=== PATIENT | female | born 1955 | race Caucasian/White ===

== ENCOUNTER → 2017-04-17 | Outpatient (CLI) | payer BC, OTHER ==
--- NOTE | 2017-04-17 09:41 | DIAGNOSTIC IMAGING REPORT ---
RIGHT HIP 2 VIEWS HISTORY: RIGHT KNEE AND HIP PAIN Right COMPARISON: None. FINDINGS: There is no fracture or dislocation. Soft tissues are unremarkable. No radiopaque foreign bodies. Minimal cartilage space narrowing and an overhanging osteophyte at the right acetabulum. This is consistent with degenerative change. IMPRESSION: No fractures. Minimal right hip osteoarthritis. Electronically signed by: Gt Perdomo M.D. 04/17/2017 9:39 AM Dictated Date/Time: 04/17/2017 9:38 AM
--- NOTE | 2017-04-17 09:43 | DIAGNOSTIC IMAGING REPORT ---
RIGHT KNEE 4 OR MORE CLINICAL HISTORY: RIGHT KNEE AND HIP PAIN Right COMPARISON STUDY: None. FINDINGS: Standing views of the knees demonstrate mild cartilage space narrowing within the medial prominent of the right knee. The left knee is intact. Hypertrophy bilateral tibial spines consistent with degenerative change. No fracture or dislocation within the right knee. No significant knee effusion. Soft tissues are unremarkable. There is also mild cartilage space narrowing within the lateral patellofemoral compartment of the right knee. Small marginal osteophytes at the patella and medial compartment of the knee. IMPRESSION: Mild osteoarthritis within the right knee. No fractures. Electronically signed by: Gt Perdomo M.D. 04/17/2017 9:41 AM Dictated Date/Time: 04/17/2017 9:40 AM
== END | disposition home or self-care (01) ==
LOC: C.RDSM 11:40
PROVIDERS: ATTEND Physician Assistant
DX: M25.551 Pain in right hip (principal); M25.561 Pain in right knee

== ENCOUNTER → 2017-08-07 | Outpatient (CLI) | payer BC, OTHER ==
--- NOTE | 2017-08-08 14:35 | MAMMOGRAPHY REPORT ---
BILATERAL DIGITAL SCREENING MAMMOGRAM TOMOSYNTHESIS WITH CAD: 08/07/2017 CLINICAL HISTORY: Routine screening. Patient has no complaints. TECHNIQUE: Breast tomosynthesis in addition to standard 2D mammography was performed. Current study was also evaluated with a Computer Aided Detection (CAD) system. COMPARISON: Comparison is made to exams dated: 08/06/2016 mammogram, 08/03/2015 mammogram, 4 ultrasound, 08/16/2014 mammogram, 08/02/2014 mammogram, and 07/30/2013 mammogram - [facility]. BREAST COMPOSITION: There are scattered areas of fibroglandular density in both breasts. FINDINGS: No suspicious masses, calcifications, or areas of architectural distortion are noted in ei ther breast. There has been no significant interval change compared to prior exams. Scattered bilater al benign-appearing calcifications are not significantly changed. IMPRESSION: ACR BI-RADS CATEGORY 2: BENIGN There is no mammographic evidence of malignancy. A 1 year screening mammogram is recommended. The pa tient will receive written notification of the results. Approximately 10% of breast cancers are not detected with mammography. A negative mammographic report should not delay biopsy if a clinically suggestive mass is present. Ainsley Pak M.D. /:08/07/2017 16:23:04 Maintenance Machine Repairer: Jovanna Anguiano, M, [facility] letter sent: Normal 1/2 BI-RADS Code: ACR BI-RADS Category 2: Benign
== END | disposition home or self-care (01) ==
LOC: C.MAMM 14:36
PROVIDERS: ATTEND Family Medicine
DX: Z12.31 Encounter for screening mammogram for malignant neoplasm of breast (principal)

== ENCOUNTER 2024-11-26 12:27 | Inpatient (IN) ==
[2024-11-26 13:18] LABS: Appearance Urine Clear (Clear); Bacteria Urine Automated None Seen (None Seen); Bilirubin Urine 1+ (Negative); Blood Urine Negative (Negative); Color Urine Dark Yellow; Glucose Urine UA Negative (Negative); Ketones Urine 1+ (Negative); Leukocyte Esterase Urine 2+ (Negative); Mucus Urine Present (None Prsent); Nitrite Urine Negative (Negative); Protein Urine Trace (Negative); RBC Urine Automated 0-2 /hpf (0-2); Specific Gravity Urine 1.025 (1.000-1.030); Urobilinogen Urine Negative (Negative)
[2024-11-26 13:19] LABS: Basophils # (auto) 0.07 K/uL (0.00-0.20); Basophils % (auto) 1.4 %; Eosinophils # (auto) 0.19 K/uL (0.00-0.50); Eosinophils % (auto) 3.8 %; Hematocrit (blood only) 41.4 % (37.0-47.0); Immature Granulocytes # (auto) 0.04 K/uL (0.01-0.20); Immature Granulocytes % (auto) 0.8 %; Lymphocytes # (auto) 1.35 K/uL (1.20-3.40); Lymphocytes % (auto) 26.9 %; Mean Corpuscular Hemoglobin 29.7 pg (25.0-34.0); Mean Corpuscular Hgb Conc 33.8 g/dL (32.0-36.0); Mean Corpuscular Volume 87.7 fL (80.0-100.0); Mean Platelet Volume 9.5 fL (9.4-12.4); Monocytes # (auto) 0.38 K/uL (0.11-0.59); Monocytes % (auto) 7.6 %; Neutrophils # (auto) 2.98 K/uL (1.40-6.50); Neutrophils % (auto) 59.5 %; Platelet Count 335 K/uL (130-400); RDW Coefficient of Variation 13.3 % (11.5-14.5); RDW Standard Deviation 42.9 fL (36.4-46.3); Red Blood Count 4.72 M/uL (4.20-5.40); White Blood Count 5.01 K/ul (4.8-10.8)
[2024-11-26 13:32] LABS: Albumin Globulin Ratio 1.3 (0.9-2); Albumin Level 4.3 gm/dl (3.4-5.0); BUN Creatinine Ratio 18.8 (10-20); Bilirubin,Total 0.4 mg/dl (0.2-1.0); Calcium 9.7 mg/dl (8.6-10.3); Creatinine Clr Calc Pharmacy 76.7 ml/min; Globulin 3.4 gm/dl (2.5-4.0); Potassium 3.9 mmol/L (3.5-5.1); Total Protein 7.7 gm/dl (6.0-8.3)
--- NOTE | 2024-11-26 15:41 | History & Physical Report ---
Date of Service November 26, 2024 Assessment & Plan (1) Diverticulitis: Plan 68-year-old female who presents to the ER on referral from PCP due to nausea and intolerance of p.o. antibiotics for diverticulitis. No signs of worsening diverticulitis on admission. She has multiple medication allergies. Acute diverticulitis CTA/P/03/12: Sigmoid diverticulitis, no free air or abscess. Mild retained colonic stool. Cholelithiasis No leukocytosis on ER evaluation Patient with nausea although no vomiting and difficulty tolerating ciprofloxacin/Flagyl. Abdominal exam is with focal left lower quadrant tenderness but no rebound or guarding and patient reports her pain has not wors ened. Suspect more likely gastritis medicamentosa than worsening diverticulitis. Patient feels she has not tolerated ciprofloxacin well Patient is penicillin allergic however she reports she did tolerate Ancef well with orthopedics last year. On my review did receive Ancef 11/2023 and patient reports she tolerated this well. Will trial Rocephin/Flagyl on admission and monitor closely for signs of allergy If abdominal pain worsening or she is not progressing will repeat CTA/P Total bilirubin, ALT, alk phos normal. Minimal elevation of AST at 44. Trended x 1. Slight volume contraction on admission with poor p.o. intake Increase stool burden Noted on prior CT. Patient with poor p.o. intake and some nausea. MiraLAX added. Gastritis 2/2 abx Pepcid, famotidine, GI cocktail ordered - No diarrhea, no hematochezia DVT prophylaxis: Lovenox Disposition: MSO CODE STATUS: Full code Diet: Full liquids. History of Present Illness Primary Care Provider: Elier Moore MD Karely is a 68-year-old female with a history of Bactrim and penicillin allergy who was treated as an outpatient for diverticulitis who presents for diverticulitis with intolerance to oral antibiotics. On arrival no leukocytosis, UA is contaminated appearing. Prior CTA/P from 11/23/24 reviewed. This shows to sigmoid diverticulitis without evidence of free air or abscess. Mild retained stool. Cholelithiasis without acute cholecystitis. She was recommended for admission for diverticulitis with intolerance to p.o. antibiotics. Was prescribed Cipro/Flagyl as an outpatient Last [facility] office note reviewed Medical history of cervical disc disorder, diverticulitis, seizures, tobacco use, lumbar radiculopathy, osteoarthritis of the knee Outpatient medications: Calcium carbonate, vitamin D3, hydroxyzine 10 mg nightly. Recently prescribed Flagyl/Cipro for diverticulitis. History of hives to penicillin, fine drug rash with burning to Bactrim/sulfa. Seen at bedside - Reports she doesn't think pain is worse, but also hasn't gotten any better - No diarrhea. Last BM was yesterday, small, firm. First BM in 10 days. Not eating very much - No fevers or chills. No sweats. - +indigestion, nauseus since being on oral meds. No vomiting. - TOlerated ancef in the past with ortho, no reaction. Last allergic rxn as to bactrim 8 years ago. - Denies hx of GERD/reflux prior to this week. - No dysuria, no urinary urgency, no polyuria ? History of C. difficile per record review. Discussed the patient. She denies any history of C. difficile. Note she had an exposure as her mother had C. difficile but she has never had this before. Prophylactic antibiotics are not indicated. Clinically no diarrhea on admission. Medical History: Reviewed Medications: Reviewed Surgical History: Reviewed Family history: Reviewed Allergies: Reviewed Social History: No tobacco use. No etoh use. Code Status: Surrogate DM would be Santiago. Full Code MedHx: OA, cataracts Calcium, vitamin D3, Allergies Allergy/AdvReac Type Severity Reaction Status Date / Time sulfamethoxazole Allergy Severe hives - Verified 11/23/24 17:08 [From Bactrim] neck/face trimethoprim [From Bactrim] Allergy Severe hives - Verified 11/23/24 17:08 neck/face Penicillins Allergy Intermediate as a young Verified 11/23/24 17:08 child - hives oats AdvReac Intermediate Gastrointestinal Verified 11/23/24 17:08 Upset Home Medications Medication Instructions Recorded Confirmed Type hydroxyzine HCl 10 mg tablet 10 mg PO HS PRN NEEDED 11/07/23 11/26/24 History calcium 600 mg (as 1 tab PO QPM 03/20/24 11/26/24 History carbonate)-vitamin D3 5 mcg (200 unit) tablet Bacillus coagulans 2 billion 1 cap PO QAM 09/22/24 11/26/24 History cell-calcium 140 mg capsule (Digestive Advantage Probiotic) Combo Eye Drops 1 drp ophthalmic (eye) DIRECTED 11/23/24 11/26/24 History ciprofloxacin HCl 500 mg tablet 500 mg PO BID 5 days #10 tabs 11/23/24 11/26/24 Rx metronidazole 500 mg tablet 500 mg PO Q8H 5 days #15 tabs 11/23/24 11/26/24 Rx Past Med/Surg History Problem List Constipation (Acute) Diverticulitis (Acute) Encounter for pre-operative examination Medical History Insomnia Hx of motion sickness "mild" 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 at [facility] Has had no follow ups since procedure and no known problems. Surgical History History of cataract surgery left History of anesthesia reaction pt. was delusional when waking up after having knee surgery Nausea and vomiting after administration of anesthetic agent Awareness under anesthesia during colonoscopy History of arthroscopy of right knee History of colonoscopy S/P GRACE-BSO Family History Other No family history of adverse response to anesthesia Social History Smoking Status: Former smoker Tobacco Type: Cigarettes Second Hand Exposure: No; Do You Dip or Chew Tobacco: No; Hx Alcohol Use: No Hx Substance Use: No Preferred Language: [place] Communication Ability: Effective Visitor Services Information Assistant Required: No Beliefs That Will Affect Care: None Current Living Situation: Spouse Feels Safe at Home: Yes Assistive Devices: Glasses Physical Exam Physical Exam: General: A&Ox3. NAD. Cooperative. Skin: warm, dry. No signs of rash/urticaria HEENT: Atraumatic, normocephalic. Vision and hearing grossly intact Pulm: CTAB A&P. -wheezes, -rales, -rhonchi. Symmetrical chest rise. No increased work of breathing. No respiratory distress. Cardiac: RRR, -mrg. Radial pulses intact and symmetrical. Abdominal: Left lower quadrant tender to palpation. No right lower quadrant tenderness. No rebound or involuntary guarding. Some nausea on epigastric palpation Results & Data Results & Data Vital Signs (Past 12 Hours) Vital Signs Temp Pulse Pulse Resp BP BP Pulse Ox 11/26/24 15:00 60 22 124/79 94 11/26/24 14:30 54 L 18 136/77 93 11/26/24 14:28 57 L 11/26/24 14:00 58 L 14 121/80 96 11/26/24 13:36 57 L 20 138/79 97 11/26/24 12:39 36.3 C L 71 18 121/75 94 O2 Del Method 11/26/24 15:00 Room Air 11/26/24 14:30 Room Air 11/26/24 14:28 11/26/24 14:00 Room Air 11/26/24 13:36 Room Air 11/26/24 12:39 Room Air PG Care Time/CCT Total # of Minutes Spent Total Time Spent with Patient: Total time spent is greater than 50% in coordination of care (as documented) at patient's floor/unit and/or counseling patient: Coding Level of Care Code 64839 INT INP/OBS CARE Diagnoses Diverticulitis K57.92
[2024-11-26] MEDS ORDERED: ALUMINUM/MAGNESIUM SUSP 30 ML UDC PO PRN (16:06)
[2024-11-26] MEDS ORDERED: diphenhydrAMINE 50 MG/ML VIAL IV PRN (16:06)
[2024-11-26] MEDS: ALUMINUM/MAGNESIUM SUSP 30 ML UDC PO STA (16:42)
[2024-11-26] MEDS: FAMOTIDINE 20MG IV PUSH 20 MG/5 ML SYR IV STA (16:42)
[2024-11-26] MEDS: cefTRIAXone SODIUM 2,000 MG/50 ML BAG IV STA (16:43)
[2024-11-26] MEDS: POLYETHYLENE (MIRALAX) 17 GM PACK PO STA (16:43)
[2024-11-26] MEDS: metroNIDAZOLE 500 MG/100 ML BAG IV STA (16:43)
--- NOTE | 2024-11-26 16:59 | Emergency Department Note ---
Impression & Plan Diverticulitis ED Provider Note NAME: EMILY MASTERSON AGE: 68 SEX: F : 1955 ARRIVES VIA: Walk-In INFORMANT: Patient, ED PROVIDER(S): Jeremiah Aragon MD CHIEF COMPLAINT: Diverticulitis HPI: this is a 68-year-old female presenting for diverticulitis. Patient was here Saturday diagnosis diverticulitis patient was discharged on ciprofloxacin and metronidazole. Patient had some adverse reactions including nausea, weakness and possible throat swelling. She went to her primary care doctor today who sent her to the emergency department for IV antibiotics. ROS: See above HPI for pertinent positives & negatives. A total of 10 systems reviewed and were otherwise negative. PAST MEDICAL HISTORY: See Below PAST SURGICAL HISTORY: See Below FAMILY HISTORY: See Below SOCIAL HISTORY: See Below HOME MEDICATIONS: See Below ALLERGIES: See Below VITALS: See Below PHYSICAL EXAMINATION: General: resting comfortably in no acute distress Head: Normocephalic and atraumatic Eyes: Normal inspection, extraocular muscles intact Ear, nose, throat: Normal external exam Neck: Normal range of motion Respiratory: lungs clear to auscultation bilaterally Cardiovascular: Regular rate/rhythm, no murmur GI: soft, nontender, no guarding or rebound Extremities: nontender, moves all extremities Neuro: The patient awake and alert, appropriately conversive, no focal deficits, symmetric faces Skin: Warm, dry, and intact MEDICAL DECISION MAKING: This is a 68-year-old female presented for diverticulitis. Patient sent in by primary care doctor for adverse reaction of antibiotics. She request IV antibiotics. This time patient appears clinically well, no signs of anaphylaxis, allergic reaction. Patient notes continued abdominal pain left side where her diverticulitis was. She otherwise has not any fevers or chills. -Bloodwork is reviewed showing no significant leukocytosis, anemia, electrolyte or creatinine abnormality -Urinalysis reveals signs of contamination versus UTI. -After discussion with pharmacist, patient given IV ceftriaxone and metronidazole -Patient mated under Dr. Toledo Differential diagnosis: Sepsis, diverticulitis, allergic reaction Independent History obtained from: Diagnostics interpreted by me: ECG: None Cardiac Monitoring: An order was placed for continuous cardiac monitoring. The monitor shows a rate of 57 with sinus rhythm. 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 at [facility] Has had no follow ups since procedure and no known problems. Surgical History History of cataract surgery left History of anesthesia reaction pt. was delusional when waking up after having knee surgery Nausea and vomiting after administration of anesthetic agent Awareness under anesthesia during colonoscopy History of arthroscopy of right knee History of colonoscopy S/P GRACE-BSO Family History Other No family history of adverse response to anesthesia Social History Smoking Status: Former smoker Tobacco Type: Cigarettes Second Hand Exposure: No; Do You Dip or Chew Tobacco: No; Hx Alcohol Use: No Hx Substance Use: No Preferred Language: Bulgarian Communication Ability: Effective Vocational Nurse Required: No Beliefs That Will Affect Care: None Current Living Situation: Spouse Feels Safe at Home: Yes Assistive Devices: Glasses Allergies Allergies Allergy/AdvReac Type Severity Reaction Status Date / Time sulfamethoxazole Allergy Severe hives - Verified 11/23/24 17:08 [From Bactrim] neck/face trimethoprim [From Bactrim] Allergy Severe hives - Verified 11/23/24 17:08 neck/face Penicillins Allergy Intermediate as a young Verified 11/23/24 17:08 child - hives oats AdvReac Intermediate Gastrointestinal Verified 11/23/24 17:08 Upset Home Meds Home Medications Medication Instructions Recorded Confirmed hydroxyzine HCl 10 mg tablet 10 mg PO HS PRN NEEDED 11/07/23 11/26/24 calcium 600 mg (as 1 tab PO QPM 03/20/24 11/26/24 carbonate)-vitamin D3 5 mcg (200 unit) tablet Bacillus coagulans 2 billion 1 cap PO QAM 09/22/24 11/26/24 cell-calcium 140 mg capsule (Digestive Advantage Probiotic) Combo Eye Drops 1 drp ophthalmic (eye) DIRECTED 11/23/24 11/26/24 Previous Rx's Medication Instructions Recorded ciprofloxacin HCl 500 mg tablet 500 mg PO BID 5 days #10 tabs 11/23/24 metronidazole 500 mg tablet 500 mg PO Q8H 5 days #15 tabs 11/23/24 Results & Data (ED) Vital Signs Vital Signs - 24 hr 11/26/24 12:39 11/26/24 13:36 11/26/24 14:00 Temperature 36.3 C L Temperature Source Temporal Artery Scan Pulse Rate 71 58 L Pulse Rate [Apical] 57 L Pulse Rate from SpO2 Sensor 59 L Pulse Rhythm [Apical] Regular Pulse Strength [Apical] Normal Respiratory Rate 18 20 14 Respiratory Effort / Characteristics Non-Labored Spontaneous Non-Labored Spontaneous Respiratory Depth Normal Normal Respiratory Pattern Regular Regular Blood Pressure 121/75 121/80 Blood Pressure [Left Arm] 138/79 Blood Pressure Mean 90 93 Blood Pressure Mean [Left Arm] 98 Blood Pressure Position [Left Arm] Semi-fowlers Pulse Oximetry 94 97 96 Oxygen Delivery Method Room Air Room Air Room Air Sepsis Recent Fever Within 48 Hours No Sepsis New/Unexplained Change in Mental Status N/A Sepsis Action Taken by Nursing No Action Required 11/26/24 14:28 11/26/24 14:30 11/26/24 15:00 Temperature Temperature Source Pulse Rate 57 L 54 L 60 Pulse Rate [Apical] Pulse Rate from SpO2 Sensor 54 L Pulse Rhythm [Apical] Pulse Strength [Apical] Respiratory Rate 18 22 Respiratory Effort / Characteristics Respiratory Depth Respiratory Pattern Blood Pressure 136/77 124/79 Blood Pressure [Left Arm] Blood Pressure Mean 96 94 Blood Pressure Mean [Left Arm] Blood Pressure Position [Left Arm] Pulse Oximetry 93 94 Oxygen Delivery Method Room Air Room Air Sepsis Recent Fever Within 48 Hours Sepsis New/Unexplained Change in Mental Status Sepsis Action Taken by Nursing Laboratory Data 11/26/24 12:45 11/26/24 12:45 Lab Results 11/26/24 11/26/24 Range/Units 12:40 12:45 WBC 5.01 (4.8-10.8) K/ul RBC 4.72 (4.20-5.40) M/uL Hgb 14.0 (12.0-16.0) g/dl Hct 41.4 (37.0-47.0) % MCV 87.7 (80.0-100.0) fL MCH 29.7 (25.0-34.0) pg MCHC 33.8 (32.0-36.0) g/dL RDW Std Deviation 42.9 (36.4-46.3) fL RDW Coeff of Jodi 13.3 (11.5-14.5) % Plt Count 335 (130-400) K/uL MPV 9.5 (9.4-12.4) fL Immature Gran % (Auto) 0.8 % Neut % (Auto) 59.5 % Lymph % (Auto) 26.9 % [place] % (Auto) 7.6 % Eos % (Auto) 3.8 % Baso % (Auto) 1.4 % Neut # (Auto) 2.98 (1.40-6.50) K/uL Lymph # (Auto) 1.35 (1.20-3.40) K/uL [place] # (Auto) 0.38 (0.11-0.59) K/uL Eos # (Auto) 0.19 (0.00-0.50) K/uL Baso # (Auto) 0.07 (0.00-0.20) K/uL Immature Gran # (Auto) 0.04 (0.01-0.20) K/uL Sodium 139 (136-145) mmol/L Potassium 3.9 (3.5-5.1) mmol/L Chloride 103 (98-107) mmol/L Carbon Dioxide 29 (21-32) mmol/L Anion Gap 7 (3-11) BUN 15 (6-23) mg/dl Creatinine 0.80 (0.6-1.2) mg/dl Est Cr Clr Drug Dosing 76.7 ml/min eGFR 79.71 BUN/Creatinine Ratio 18.8 (10-20) Glucose 127 H (70-99(Fasting)) mg/dl Calcium 9.7 (8.6-10.3) mg/dl Total Bilirubin 0.4 (0.2-1.0) mg/dl AST 44 H (13-39) U/L ALT 30 (7-52) U/L Alkaline Phosphatase 82 (34-104) U/L Total Protein 7.7 (6.0-8.3) gm/dl Albumin 4.3 (3.4-5.0) gm/dl Globulin 3.4 (2.5-4.0) gm/dl Albumin/Globulin Ratio 1.3 (0.9-2) Lipase 20 (11-82) U/L Urine Color Dark Yellow Urine Appearance Clear (Clear) Urine pH 5.0 (4.5-7.5) Ur Specific [place] 1.025 (1.000-1.030) Urine Protein Trace H (Negative) Urine Glucose (UA) Negative (Negative) Urine Ketones 1+ H (Negative) Urine Blood Negative (Negative) Urine Nitrite Negative (Negative) Urine Bilirubin 1+ H (Negative) Urine Urobilinogen Negative (Negative) Ur Leukocyte Esterase 2+ H (Negative) Urine WBC (Auto) 6-10 H (0-5) /hpf Urine RBC (Auto) 0-2 (0-2) /hpf U Hyaline Cast (Auto) 3-5 H (0-2) /lpf U Epithel Cells (Auto) 6-10 H (0-2) /hpf Urine Bacteria (Auto) None Seen (None Seen) Urine Mucus Present A (None Prsent) Administered Medications Discontinued Medications Al Hydrox/Mg Hydrox/Simethicone (Aluminum/Magnesium Susp 30 Ml Udc) 15 ml PO NOW STA Stop: 11/26/24 16:07 Last Admin: 11/26/24 16:42 Dose: 15 ml Documented By: Famotidine (Pepcid 20mg Iv Push) 20 mg in 5 mls @ 2.5 mls/min IV NOW STA Stop: 11/26/24 16:20 Last Admin: 11/26/24 16:42 Dose: 2.5 mls/min Documented By: Ceftriaxone Sodium (Rocephin) 2,000 mg in 50 mls @ 100 mls/hr IV NOW STA Stop: 11/26/24 16:48 Last Infusion: 11/26/24 17:25 Dose: Infused Documented By: Admin: 11/26/24 16:43 Dose: 100 mls/hr Documented By: Metronidazole (Flagyl) 500 mg in 100 mls @ 100 mls/hr IV NOW STA; Protocol Stop: 11/26/24 17:19 Last Infusion: 11/26/24 17:34 Dose: 0 mls/hr Documented By: Admin: 11/26/24 16:43 Dose: 100 mls/hr Documented By: Polyethylene Glycol (Polyethylene (Miralax) 17 Gm Pack) 17 gm PO NOW STA Stop: 11/26/24 16:19 Last Admin: 11/26/24 16:43 Dose: 17 gm Documented By: Discharge Plan Visit Data Chief Complaint: Abdominal Pain Stated Complaint: REFERRED BY DOC- ED Provider: Jeremiah Aragon Discharge Problem: Diverticulitis Patient Disposition: Admitted As Inpatient Discharge Instructions Interventions: ED Discharge Assessment Last Done: 11/26/24 17:37
[2024-11-26] MEDS ORDERED: hydrOXYzine HCl 10 MG TAB PO PRN (17:58)
--- OUTSIDE RECORDS SUMMARY | 2024-11-26 18:09 | External Medical Summary | Continuity of Care Document ---
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 Name Role Phone Elier Moore Primary Care Physician [phone] [facility]counter [id number] Date(s): 11/23/24 - 11/23/24 [place] [address] [place] A [address] [address] [phone] Encounter Diagnosis Body mass index [BMI] 33.0-33.9, adult(Discharge Diagnosis) - 11/23/24 Constipation(Discharge Diagnosis) - 11/23/24 Discharge Disposition: Home or Self Care Attending Physician: SHAHBAZ Rapp Danielle B Referring Physician: SHAHBAZ Rapp Danielle B Encounter Type: Clinic Allergies, Adverse Reactions, Alerts Substance Criticality Severity Reaction Reaction Severity Status penicillin hives Active sulfa drugs hives Active oats upset stomach Active Bactrim DS fine drug rash with burning sensation Active Assessment and Plan Extracted from: Title:Acute Visit Note Author:SHAHBAZ Rapp Dani elle B Date:11/23/24 1. Constipation Suspected palpable stool burden LLQ. Recommended that patient be evaluated in ER given diffuse discomfort, nausea, emesis and patient is agreeable. - Patient verbalizes understanding regarding plan of care and all questions answered. Immunizations Given and Recorded Vaccine Date Status Refusal Reason influenza virus vaccine, inactivated 05/13/23 Edy rded influenza virus vaccine, inactivated 05/09/21 Give n influenza virus vaccine, inactivated 05/05/19 Give n influenza virus vaccine, inactivated 06/01/18 Give n influenza virus vaccine, inactivated 05/23/17 Give n influenza virus vaccine, inactivated 05/31/16 Give n influenza virus vaccine, inactivated 05/27/15 Give n influenza virus vaccine, inactivated 05/11/14 Give n influenza virus vaccine, inactivated 05/05/13 Give n influenza virus vaccine, inactivated 05/13/12 Give n zoster vaccine, inactivated 10/17/22 Recorded zoster vaccine, inactivated 09/01/22 Recorded SARS-CoV-2 (COVID-19) mRNA BNT-162b2 vax 1 06/17/21 Recorded SARS-CoV-2 (COVID-19) mRNA BNT-162b2 vax 10/13/20 Recorded SARS-CoV-2 (COVID-19) mRNA BNT-162b2 vax 09/22/20 Recorded pneumococcal 23-valent vaccine 04/05/21 Given pneumococcal 13-valent vaccine 03/02/20 Given tetanus/diphtheria/pertuss, acel (Tdap) 2 07/25/18 Recorded tetanus/diphtheria/pertuss, acel (Tdap) 07/02/18 R ecorded zoster vaccine live 06/19/15 Recorded zoster vaccine live 3 06/19/15 Recorded influenza virus vaccine, H1N1 4 09/10/09 Recorded 1Result Comment: 2021-06-19: Historical information-source unspecified 2Result Comment: 2021-04-05: Historical information-source unspecified 3Result Comment: 2021-04-05: Historical information-source unspecified 4Result Comment: 2021-04-05: Historical information-source unspecified Medications calcium (as carbonate) 600 mg oral tablet Start: 11/03/18 10:46:00 AM EDT, See Instructions, Disp# 100 tab, 1200-1500mg daily, other Start Date: 11/03/18 Status: Ordered Quantity: 100.0 Unit: tab Repeat number: 1 hydrOXYzine hydrochloride 10 mg oral tablet Start: 10/08/24 9:53:00 AM EST, 1 tab, PO, qhs, Disp# 30 tab, Refills: 11, FOR SLEEP., Pharmacy: [id number] Start Date: 10/08/24 Status: Ordered Quantity: 30.0 Unit: tab Repeat number: 1 Probiotic Start: 11/23/24 1:51:00 PM EDT, Probiotic, Digestive advantage Start Date: 11/23/24 Status: Ordered Repeat number: 1 Vitamin D3 2000 intl units oral tablet Start: 11/03/18 10:45:00 AM EDT, See Instructions, Disp# 100 tab, 1999IU daily, other Start Date: 11/03/18 Status: Ordered Quantity: 100.0 Unit: tab Repeat number: 1 Mental Status 11/23/24 Barriers to Learning one year None evide nt Mandatory Health Literacy Documentation Yes Health Literacy Communication Barriers N ever Primary Language Cuban Problem List Condition Confirmation Course Effective Dates Status H ealth Status Informant Hyperlipemia Confirmed Active Hearing loss 1 Confirmed 04/10/22 Active L-S radiculopathy Confirmed Active OA (osteoarthritis) of knee Confirmed Active Obesity Confirmed Active Primary osteoarthritis of hip Confirmed Active Degenerative joint disease of right knee Confirmed Active 1mild bilateral hearing loss Diagnosis Diagnosis Type Effective Dates Health Status Clinical Service Informant Body mass index [BMI] 33.0-33.9, adult Discharge Diagnosis 11/23/24 Non-Specified Constipation Discharge Diagnosis 11/23/24 Non-Specified Procedures Procedure Date Related Diagnosis Body Site Status DEXA (dual energy X-ray absorptiometry) of lateral spine 1 06/21/23 Completed Knee X-ray 2 02/27/23 Completed Mammogram - screening 3 10/25/22 C ompleted Skeletal X-ray of pelvis and hip 4 02/06/22 Completed Mammogram - screening 5 09/14/21 C ompleted Mammogram - screening 6 09/13/20 C ompleted Bone density scan 7 05/12/20 Compl eted Mammogram - screening 8 08/10/19 C ompleted Mammogram 9 08/04/18 Completed Mammogram - screening 10 08/07/17 Completed Hip X-ray 11 04/17/17 Completed Mammogram - screening 12 08/06/16 Completed X-ray of right knee 13 02/27/16 Co mpleted Venous duplex-Right lower Extremity 14 10/31/15 Completed Mammogram - screening 15 08/03/15 Completed Mammogram 16 08/16/14 Completed Mammogram - screening 17 08/02/14 Completed Colonoscopy 18 09/18/13 Completed Colonoscopy 19, 20 12/29/08 Comple mildred AVM laser surgery Complet ed TAHBSO 21 Completed 1T score -0.7 2no evidence of osseus injury 3Impression: There is no mammographic evidence of malignancy. A 1 year screening mammogram is recommended. (10/26/23) The patient will receive written notification of the results. 4No evidence of acute bony injury. 5impression: THere is no mammographic evidence of malignancy A 1 year screening mammogram is recommended (09/15/2022) Also recommend clinical follow-up for prominent left axillary tissue reported by the patient. 6There is no mammographic evidence of malignancy. A 1 year screening mammogram is recommended. The patient will receive written notification of the results. 7AP spine L1-L4 T score 0.3 Femur left neck T score -0.9 Femur neck right T schore -0.8 Femur total left T score -0.8 Femur total left T score 0.2 Femur totl right T score is 0.0 Z score 0.6. Considered within normal limits relative to their age 8Impression: There is no mammographic evidence of malignancy. A 1 year screening mammogram is recommended. (08/10/2020). The patient will receive written notification of the results. 9normal. 10there is no mammographic evidence of malignancy. A 1 year screening mammogram is recommended. The patient will receive written notification of the results. 11No fractures. Minimal right hip osteoarthritis. 12There is no mammographic evidence of malignancy. A 1 year screening mammogram is recommended. The patient will receive written notification of the results. 13No acute bony abnormality. 14Normal study. No evidence of deep or superficial vein thrombosis in the right leg. No abnormality found in the contralateral common femoral vein 15Impression: There is no mammographic evidence of malignancy. A 1 year screening mammogram is recommended. The patient will receive written notification of the results. 16left diagnositic--negative. 17Left breast needs additional imaging. 18diverticulitis 19colonoscopy in 2008 was incomplete due to poor prep. 20normal 21for fiboids Vital Signs Most recent to oldest [Reference Range]: 1 Height 168.0 cm (11/23/24 1:52 PM) Patient Weight 95.3 kg (11/23/24 1:52 PM) Body Mass Index 33.77 kg/m2 (11/23/24 1:52 PM) Temperature [36.5-37.9 DegC] 36.7 DegC (11/23/24 1:52 PM) Heart Rate 77 bpm (11/23/24 1:52 PM) Respiratory Rate 17 br/min (11/23/24 1:52 PM) Blood Pressure 112/67mmHg (11/23/24 1:52 PM) Cuff Pulse Pressure 45 mmHg (11/23/24 1:52 PM) Social History Social History Type Response Tobacco Former smoker, Cigar ettes 1 Smoking Status Former Smoker, quit > 1 yr Sex Female Sex Representation Female (finding) 1Quit 30 yrs ago FCM Outpt Note * SHAHBAZ Rapp Danielle B: PERFORM Event Display: FCM Outpt Note Authored Date: Chief Complaint Constipation. Has mucous in stools. Bloating X 10 days. Nausea after eating X 2 days. Has been taking miralax the last 2 days with no relief. History of Present Illness Patient is a 68 year old female here for constipation x 10 days. Has PMH of constipation, but not like this. Has been taking stool softeners without relief. Saw urgent care 3 days ago who recommendedadding miralax and patient reports she still has not had bowel movement. Nausea after eating. Episode of emesis after eating 2 days ago. Denies fever, chills. Review of Systems Negative unless stated in HPI. Physical Exam Vitals & Measurements T: 36.7 °C HR: 77 (Monitored) RR: 17 BP: 112/67 SpO2: 95% HT: 168.0 cm WT: 95.3 kg WT: 95.300 kg (Dosing) BMI: 33.77 PHQ2 Data (Data Documented on:11/23/2024 13:52) Emotional health assessment NEGATIVE CONSTITUTIONAL: Well-developed, well nourished. No acute distress. NEUROLOGICAL: Patient alert, orientated, memory intact. Gait steady. HEENT: Head is normocephalic. ABDOMEN: Firm in LLQ. Pain with palpation throughout abdomine. Diminished bowel sounds in all four quadrants. MUSCULOSKELETAL/EXTREMITIES: Extremities are intact, no redness or edema noted of upper or lower extremity. INTEGUMENTARY: Skin pink, dry, warm to touch. No rash, wounds, lesions noted on visible skin. PSYCHOSOCIAL: Calm and cooperative, interacts appropriately withstaff. Assessment/Plan 1. Constipation Suspected palpable stool burden LLQ. Recommended that patient be evaluated in ER given diffuse discomfort, nausea, emesis and patient is agreeable. - Patient verbalizes understanding regarding plan of care and all questions answered. Problem List/Past Medical History Ongoing Degenerative joint disease of right knee Hearing loss Hyperlipemia L-S radiculopathy OA (osteoarthritis) of knee Obesity Primary osteoarthritis of hip Resolved Cervical disc disorder Clostridium difficile enteritis DiverticulITIS Foot pain, left History of seizure disorder History of smoking 10-25 pack years Tick bite of groin Procedure/Surgical History •DEXA (dual energy X-ray absorptiometry) of lateral spine| Service Date: 06/21/2023•Knee X-ray|Service Date: 02/27/2023•Mammogram - screening| Service Date: 10/25/2022•Skeletal X-ray of pelvis and hip| Service Date: 02/06/2022•Mammogram - screening| Service Date: 09/14/2021•Mammogram - screening| Service Date: 09/13/2020•Bone density scan| Service Date: 05/12/2020•Mammogram - screening| Service Date: 08/10/2019•Mammogram| Service Date: 08/04/2018•Mammogram - screening| Service Date: 08/07/2017•Hip X-ray| Service Date: 04/17/2017•Mammogram - screening| Service Date: •X-ray of right knee| Service Date: 02/27/2016•Venous duplex-Right lower Extremity| Service Date: 10/31/2015•Mammogram - screening| Service Date: 08/03/2015•Mammogram| Service Date: 08/16/2014•Mammogram - screening| Service Date: 08/02/2014•Colonoscopy| Service Date: 09/18/2013•Colonoscopy| Service Date: 12/29/2008•TAHBSO•AVM laser surgery Medications calcium carbonate(calcium (as carbonate) 600 mg oral tablet), See Instructions cholecalciferol(Vitamin D3 2000 intl units oral tablet), See Instructions hydrOXYzine(hydrOXYzine hydrochloride 10 mg oral tablet), 1 tab, PO, qhs unknown medication(Probiotic) Allergies Bactrim DS fine drug rash with burning sensation oats upset stomach penicillin hives sulfa drugs hives Social History Smoking Status Former Smoker, quit > 1 yr Alcohol - Denies Alcohol Use Employment/School Status:Retired Description:7yrs ago Exercise Exercise type:Walking Home/Environment Lives with:Spouse Feels unsafe at home:No Substance Abuse - Denies Substance Abuse Tobacco - No Risk Use:Former smoker Type:Cigarettes - Comments: Quit 30 yrs ago Intake (IVblanco) Smoking History Cigarette smoker: Former Smoker, quit > 1 yr Tobacco Product Use: Never used other tobacco products Total pack years: 15 If past smoker, what year did you quit: 1987 What was avg daily use when smokin pk (20 cigarettes) How many total years did you smoke: 15 SHX E-Cigarette Use: Never Family History Diabetes: Mother. Pancreatic cancer..: Father. Parkinson disease: Mother. Skin cancer: Mother. Stroke: MGF. Uterine cancer: Mother. Health Status Family Member(s) Immunizations Vaccine Date Status influenza virus vaccine, inactivated 05/13/2023 Recorded zoster vaccine, inactivated 10/2022 Recorded zoster vaccine, inactivated 09/01/2022 Recorded SARS-CoV-2 (COVID-19) mRNA BNT-162b2 vax 06/17/2021 Recorded Comments : 2021-06-19: Historical information-source unspecified influenza virus vaccine, inactivated 05/09/2021 Given pneumococcal 23-valent vaccine 04/05/2021 Given SARS-CoV-2 (COVID-19) mRNA BNT-162b2 vax 10/13/2020 Recorded SARS-CoV-2 (COVID-19) mRNA BNT-162b2 vax 09/22/2020 Recorded pneumococcal 13-valent vaccine 03/02/2020 Given influenza virus vaccine, inactivated 05/05/2019 Given tetanus/diphtheria/pertuss, acel (Tdap) 07/25/2018 Recorded Comments : 2021-04-05: Historical information-source unspecified tetanus/diphtheria/pertuss, acel (Tdap) 07/02/2018 Recorded influenza virus vaccine, inactivated 06/01/2018 Given influenza virus vaccine, inactivated 05/23/2017 Given influenza virus vaccine, inactivated 05/31/2016 Given zoster vaccine live 06/2015 Recorded zoster vaccine live 06/19/2015 Recorded Comments : 2021-04-05: Historical information-source unspecified influenza virus vaccine, inactivated 05/27/2015 Given influenza virus vaccine, inactivated 05/11/2014 Given influenza virus vaccine, inactivated 05/05/2013 Given influenza virus vaccine, inactivated 05/13/2012 Given influenza virus vaccine, H1N1 09/10/2009 Recorded Comments : 2021-04-05: Historical information-source unspecified Recommendations Health Maintenance Pending (in the next year) OverDue Medicare Annual Wellness Visit due 04/11/23 and every 1 year Adult Influenza Vaccine due 02/17/24 and every 1 year Due Adult Social Determinants of Health Screening due 11/23/24 Unknown Frequency Hepatitis C Screening due 11/23/24 One-time only Seasonal COVID 19 Vaccine due 11/23/24 Unknown Frequency Satisfied (in the past 1 year) Satisfied Body Mass Index on 11/23/24. Satisfied by MARLEN Cordero Kirsten Breast Cancer Screening on 10/28/24. Satisfied by ANN-MARIE Gutierrez Lynnae Colorectal Cancer Screening on 05/18/24. Satisfied by ANN-MARIE Alfredo Cynthia Lipid Screening on 04/13/24. Satisfied by Contributor_system, [employer] Electronic Signature on File Electronically Reviewed/Signed by: SHAHBAZ Garcia Author Signature Dt/Tm:11/23/2024 03:31 PM Family Medicine DBN Patient Care team information Care Team Personnel Name: MD Kennedy, Uriel Francis Position: Physician - Family Med Member Role: Lifetime Relationship Address: [address] [place] [address] Telecom: [phone] Name: MD Moore Juan Position: Physician - Family Med Member Role: Primary Care Provider Address: [address] [place], [place] [address]com: [phone] Care Team Related Persons Name: YAAKOV MASTERSON Name: YAAKOV MASTERSON Insurance Providers Guarantor name: EMILY MASTERSON Health Plan Information #: 1 Payer: MEDICARE Member Number: [id number] Policy Number: NA Group Number: NA Health Plan Information #: 2 Payer: [employer] Member Number: [id number] Policy Number: NA Group Number: [id number]"
[2024-11-26] MEDS: ENOXAPARIN INJ 40 MG/0.4 ML SYR SQ SCH (18:39)
[2024-11-26] MEDS: CALCIUM 600MG + VIT D 400 IU TAB PO SCH (19:26)
[2024-11-26] MEDS: [UNRECOGNIZED DRUG - OTHER] OPR SCH (20:13)
[2024-11-26] MEDS: ONDANSETRON INJ 2 MG/ML 2 ML VIAL IV PRN (20:51)
[2024-11-26] MEDS: metroNIDAZOLE 500 MG/100 ML BAG IV SCH (23:50)
[2024-11-27] MEDS: FAMOTIDINE 20MG IV PUSH 20 MG/5 ML SYR IV SCH (04:54)
[2024-11-27 06:46] LABS: Basophils # (auto) 0.07 K/uL (0.00-0.20); Basophils % (auto) 1.4 %; Eosinophils # (auto) 0.27 K/uL (0.00-0.50); Eosinophils % (auto) 5.4 %; Hematocrit (blood only) 36.9 % (37.0-47.0); Hemoglobin 12.5 g/dl (12.0-16.0); Immature Granulocytes # (auto) 0.06 K/uL (0.01-0.20); Immature Granulocytes % (auto) 1.2 %; Lymphocytes # (auto) 1.49 K/uL (1.20-3.40); Lymphocytes % (auto) 29.9 %; Mean Corpuscular Hemoglobin 29.7 pg (25.0-34.0); Mean Corpuscular Hgb Conc 33.9 g/dL (32.0-36.0); Mean Corpuscular Volume 87.6 fL (80.0-100.0); Mean Platelet Volume 9.5 fL (9.4-12.4); Neutrophils % (auto) 52.1 %; Platelet Count 289 K/uL (130-400); RDW Coefficient of Variation 13.3 % (11.5-14.5); RDW Standard Deviation 42.6 fL (36.4-46.3); Red Blood Count 4.21 M/uL (4.20-5.40); White Blood Count 4.99 K/ul (4.8-10.8)
[2024-11-27] MEDS: [UNRECOGNIZED DRUG - OTHER] OPL SCH (08:15)
[2024-11-27] MEDS: POLYETHYLENE (MIRALAX) 17 GM PACK PO SCH (08:23)
[2024-11-27 12:13] LABS: Albumin Level 3.7 gm/dl (3.4-5.0); Bilirubin Direct 0.1 mg/dl (0-0.2); Bilirubin,Total 0.3 mg/dl (0.2-1.0)
[2024-11-27 12:19] LABS: Total Protein 6.5 gm/dl (6.0-8.3)
[2024-11-27 12:34] LABS: Potassium 4.1 mmol/L (3.5-5.1)
[2024-11-27 12:39] LABS: Creatinine Clr Calc Pharmacy 75.9 ml/min
--- NOTE | 2024-11-27 12:49 | Hospitalist Progress Note ---
Date of Service November 27, 2024 Assessment & Plan (1) Diverticulitis: Plan 68-year-old female who presents to the ER on referral from PCP due to nausea and intolerance of p.o. antibiotics for diverticulitis. No signs of worsening diverticulitis on admission. She has multiple medication allergies. Acute diverticulitis CTA/P/03/12: Sigmoid diverticulitis, no free air or abscess. Mild retained colonic stool. Cholelithiasis No leukocytosis on ER evaluation Patient with nausea although no vomiting and difficulty tolerating ciprofloxacin/Flagyl. Abdominal exam is with focal left lower quadrant tenderness but no rebound or guarding and patient reports her pain has not worsened. Suspect more likely gastritis medicamentosa than worsening diverticulitis. Patient feels she has not tolerated ciprofloxacin well Patient is penicillin allergic however she reports she did tolerate Ancef well with orthopedics last year. Did receive Ancef 11/2023 and patient reports she tolerated this well Continue Rocephin/Flagyl on admission - no signs of allergic response If abdominal pain worsening or she is not progressing will repeat CTA/P Total bilirubin, ALT, alk phos normal. Minimal elevation of AST at 44. Trended x 1 Continue full liquid diet for today, advance to low fiber breakfast tomorrow Increase stool burden Noted on prior CT. Patient with poor p.o. intake and some nausea Continue MiraLAX Gastritis 2/2 abx Pepcid, famotidine, GI cocktail ordered - No diarrhea, no hematochezia DVT prophylaxis: Lovenox Dispo: Anticipate discharge 11/28 pending diet advancement and symptom improvement Admission and Anticipated Discharge Date Admission Date: November 26, 2024 Subjective Patient seen and evaluated at bedside. She reports some improvement in her symptoms compared to prior days. She still has nausea, but states her antiemetic does relief this. She has intermittent sharp stabbing LLQ abdominal pain, which she rates 7/10 at its worst but notes this does resolve quickly. She has been passing gas but has not had a BM since being hospitalized. She also has not had much significant oral intake in the recent days. She has been tolerating her full liquid diet well so far. We discussed advancing her to low fiber diet for breakfast tomorrow. Explained the benefit of a low fiber diet for diverticulitis, all questions answered. No additional complaints or concerns at this time. Physical Exam Physical Exam: General: No acute distress, nondiaphoretic, well-developed, well-nourished. Cardiac: Regular rate and rhythm without murmurs gallops or rubs. Pulm: Clear to auscultation bilaterally without wheezes, rales or rhonchi. Normal respiratory effort. 98% on room air. Abdominal: Soft, nondistended. Tender to palpation of LLQ. Bowel sounds p resent. No rebound or guarding. Neuro: A&O x3. No focal neurological deficits. Results & Data Results & Data Vital Signs (Past 12 Hours) Vital Signs Temp Pulse Pulse Pulse Resp BP Pulse Ox 11/27/24 12:00 97.6 F 64 14 112/71 98 11/27/24 07:47 90.3 F L 62 16 126/76 96 11/27/24 07:23 97.8 F 54 L 16 106/65 97 O2 Del Method 11/27/24 12:00 Room Air 11/27/24 07:47 Room Air 11/27/24 07:23 Room Air Laboratory Results Reviewed CBC with differential Reviewed BMP Reviewed LFTs PG Care Time/CCT Total # of Minutes Spent Total Time Spent with Patient: Total time spent is greater than 50% in coordination of care (as documented) at patient's floor/unit and/or counseling patient: Coding Level of Care Code 41803 SUB INP/OBS CARE 2/35MIN Diagnoses Diverticulitis K57.92
[2024-11-27] MEDS: cefTRIAXone SODIUM 2,000 MG/50 ML BAG IV SCH (16:27)
[2024-11-28 06:46] LABS: Basophils # (auto) 0.07 K/uL (0.00-0.20); Basophils % (auto) 1.5 %; Eosinophils % (auto) 4.3 %; Hemoglobin 12.4 g/dl (12.0-16.0); Immature Granulocytes # (auto) 0.08 K/uL (0.01-0.20); Immature Granulocytes % (auto) 1.7 %; Lymphocytes # (auto) 1.36 K/uL (1.20-3.40); Lymphocytes % (auto) 29.2 %; Mean Corpuscular Hemoglobin 29.3 pg (25.0-34.0); Mean Corpuscular Hgb Conc 33.5 g/dL (32.0-36.0); Mean Corpuscular Volume 87.5 fL (80.0-100.0); Mean Platelet Volume 9.5 fL (9.4-12.4); Monocytes # (auto) 0.45 K/uL (0.11-0.59); Monocytes % (auto) 9.7 %; Neutrophils % (auto) 53.6 %; Platelet Count 291 K/uL (130-400); RDW Coefficient of Variation 13.3 % (11.5-14.5); RDW Standard Deviation 42.4 fL (36.4-46.3); Red Blood Count 4.23 M/uL (4.20-5.40); White Blood Count 4.66 K/ul (4.8-10.8)
[2024-11-28 07:05] LABS: BUN Creatinine Ratio 13.3 (10-20); Calcium 8.8 mg/dl (8.6-10.3); Potassium 4.1 mmol/L (3.5-5.1)
[2024-11-28 07:51] VITALS: BP 134/98; RESP 18; TEMP 98.2; O2SAT 92
[2024-11-28 11:33] VITALS: PULSE 64
--- NOTE | 2024-11-28 19:59 | Discharge Summary ---
Discharge Summary Date of Service November 28, 2024 Principal Dx & Hospital Course #1 = Principal Diagnosis (1) Diverticulitis: Plan 68-year-old female who presents to the ER on referral from PCP due to nausea and intolerance of p.o. antibiotics for diverticulitis. No signs of worsening diverticulitis on admission. She has multiple medication allergies. #Acute diverticulitis CTA/P/03/12: Sigmoid diverticulitis, no free air or abscess. Mild retained colonic stool. Cholelithiasis Patient with nausea although no vomiting and difficulty tolerating ciprofloxacin/Flagyl. Abdominal exam is with focal left lower quadrant tenderness but no rebound or guarding and patient reports her pain has not worsened. Suspect more likely gastritis medicamentosa than worsening diverticulitis. Patient feels she has not tolerated ciprofloxacin well Patient is penicillin allergic however she reports she did tolerate Ancef well with orthopedics last year. Did receive Ancef 11/2023 and patient reports she to lerated this well Received Ceftriaxone and Flagyl x 48 hours to complete antibiotic course. No further antibiotics needed Advanced to low fiber and well-tolerated #Constipation/Increase stool burden Noted on prior CT. Patient with poor p.o. intake and some nausea Continue MiraLAX, started Colace and Senokot-S on discharge. 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 No diarrhea, no hematochezia Pepcid, famotidine, GI cocktail ordered On discharge, continue Protonix 40 mg daily x 2 weeks then reassess continued need Zofran 4 mg ODT Q6h PRN nausea DVT prophylaxis: Lovenox Dispo: Discharged home 11/28 Notes For Next Care Provider Recommend colonoscopy in 2-3 months Monitor response to bowel regimen Medication Changes From Visit Bowel regimen as needed including daily MiraLAX, twice daily Colace, daily Senokot-S Protonix 40 mg daily x 2 weeks then reassess Zofran 4 mg ODT q6h prn nausea Admission HPI Per Admitting Provider Karely is a 68-year-old female with a history of Bactrim and penicillin allergy who was treated as an outpatient for diverticulitis who presents for diverticulitis with intolerance to oral antibiotics. On arrival no leukocytosis, UA is contaminated appearing. Prior CTA/P from 11/23/24 reviewed. This shows to sigmoid diverticulitis without evidence of free air or abscess. Mild retained stool. Cholelithiasis without acute cholecystitis. She was recommended for admission for diverticulitis with intolerance to p.o. antibiotics. Was prescribed Cipro/Flagyl as an outpatient Last [facility] office note reviewed Medical history of cervical disc disorder, diverticulitis, seizures, tobacco use, lumbar radiculopathy, osteoarthritis of the knee Outpatient medications: Calcium carbonate, vitamin D3, hydroxyzine 10 mg nightly. Recently prescribed Flagyl/Cipro for diverticulitis. History of hives to penicillin, fine drug rash with burning to Bactrim/sulfa. Seen at bedside - Reports she doesn't think pain is worse, but also hasn't gotten any better - No diarrhea. Last BM was yesterday, small, firm. First BM in 10 days. Not eating very much - No fevers or chills. No sweats. - +indigestion, nauseus since being on oral meds. No vomiting. - TOlerated ancef in the past with ortho, no reaction. Last allergic rxn as to bactrim 8 years ago. - Denies hx of GERD/reflux prior to this week. - No dysuria, no urinary urgency, no polyuria ? History of C. difficile per record review. Discussed the patient. She denies any history of C. difficile. Note she had an exposure as her mother had C. difficile but she has never had this before. Prophylactic antibiotics are not indicated. Clinically no diarrhea on admission. Medical History: Reviewed Medications: Reviewed Surgical History: Reviewed Family history: Reviewed Allergies: Reviewed Social History: No tobacco use. No etoh use. Code Status: Surrogate DM would be Santiago. Full Code MedHx: OA, cataracts Calcium, vitamin D3, Discharge Exam General: No acute distress, nondiaphoretic, well-developed, well-nourished. Cardiac: Regular rate and rhythm without murmurs gallops or rubs. Pulm: Clear to auscultation bilaterally without wheezes, rales or rhonchi. Normal respiratory effort. 96% on room air. Abdominal: Soft, nondistended. Mild tenderness to deep palpation of LLQ. Bowel sounds present. No rebound or guarding. Neuro: A&O x3. No focal neurological deficits. Discharge Plan Discharge Items Patient Disposition: Home - Self-Care Reason For Visit: DIVERTICULITIS Discharge Diagnosis: Diverticulitis Gastritis medicamentosa Constipation Activity: Resume your previous activity Non-emergency contact: Primary Care Provider Call non-emergency contact if: you have any medication questions and your symptoms worsen Follow-up/Referrals: Elier Moore MD [Primary Care Provider] - (Follow-up in 1-2 weeks) Diet: Low Fiber Addtl Attending Provider Instructions: Karely, You were admitted to the hospital due to nausea and intolerance of your oral antibiotics for your diverticulitis infection. The nausea you experienced was likely due to medication-related gastritis (inflammation of your stomach) from the oral antibiotics. You were treated with 2 additional days of IV antibiotics to complete your course, so no further antibiotics are needed on discharge. It is important to follow a bowel regimen to treat your ongoing constipation. Y ou have been prescribed additional bowel regimen medications to treat this constipation. However, recommend avoiding suppositories for the next 6-8 weeks until the inflammation from your diverticulitis infection has completely resolved. After total resolution of this diverticulitis episode, you could then consider suppositories as an additional step in your bowel regimen. Upon discharge from the hospital: * Continue following a bowel regimen to treat your constipation. Recommend MiraLAX 1 packet daily, Senokot-S 1 tablet daily, and Colace 100 mg twice daily as needed for constipation. * Drink plenty of fluids. Dehydration can cause/worsen constipation. * Follow a low fiber diet for the next few weeks, then advance to your regular diet as tolerated. * Take Protonix 40 mg daily. This medicine reduces stomach acid and will treat your gastritis. * Take Zofran 4 mg every 6 hours as needed for nausea. * Follow-up with your PCP in 1-2 weeks. Please return to the hospital if you experience any of the following: worsened/severe abdominal pain, persistent nausea with vomiting, bleeding with bowel movements, chest pain, shortness of breath, lightheadedness, passing out, confusion, or any other symptoms concerning for you. It was a pleasure taking care of you while you were in the hospital! Pending Studies at Discharge: No Stand-Alone Forms: My [facility] Storemates, Smoking Cessation Medications and DC Order Prescriptions: New polyethylene glycol 3350 [Miralax] 17 gram Powder In Packet 17 g PO DAILY Qty: 14 0RF docusate sodium [Colace] 100 mg capsule 100 mg PO BID PRN (Reason: constipation) Qty: 30 0RF sennosides-docusate sodium [Senokot-S] 8.6-50 mg tablet 1 tab-cap PO DAILY PRN (Reason: constipation) Qty: 14 0RF pantoprazole [Protonix] 40 mg tablet,delayed release (DR/EC) 40 mg PO DAILY 14 Days Qty: 14 0RF ondansetron 4 mg tablet,disintegrating 4 mg PO Q6H PRN (Reason: nausea and vomiting) Qty: 20 0RF Continued hydroxyzine HCl 10 mg Tablet 10 mg PO HS PRN (Reason: NEEDED ) calcium carbonate-vitamin D3 600 mg-5 mcg (200 unit) tablet 1 tab PO QPM Digestive Advantage Probiotic 2 billion cell- 140 mg Capsule 1 cap PO QAM Combo Eye Drops 1 drp ophthalmic (eye) DIRECTED Rx Instructions: PER PT "JUST HAD CATARACT SURGERY, COMBO MEDICINE EYE DROPS" Discontinued ciprofloxacin HCl 500 mg tablet 500 mg PO BID 5 Days Qty: 10 0RF metronidazole 500 mg tablet 500 mg PO Q8H 5 Days Qty: 15 0RF Discharge Orders: Discharge Order (Routine); Ordered 11/28/24 Ordered By: Lisa Ramirez/Other Patient Handouts: Low-Fiber Diet Admission Data Admit Date/Time: 11/26/24 16:06 Attending Provider: Иван Toledo Admit Provider: Иван Toledo Primary Care Provider: Elier Moore Other Providers: Иван Toledo Other Interventions: Discharge Summary Assessment (RN) Last Done: 11/28/24 11:31 Hospital Stay Data Consultations 11/26/24 15:50 ED Decision to Admit Stat Pending Results Patient Have Any Pending Studies at Discharge: No Discharge Instructions Given to Patient (Per Discharging Provider) Karely, You were admitted to the hospital due to nausea and intolerance of your oral antibiotics for your diverticulitis infection. The nausea you experienced was likely due to medication-related gastritis (inflammation of your stomach) from the oral antibiotics. You were treated with 2 additional days of IV antibiotics to complete your course, so no further antibiotics are needed on discharge. It is important to follow a bowel regimen to treat your ongoing constipation. You have been prescribed additional bowel regimen medications to treat this constipation. However, recommend avoiding suppositories for the next 6-8 weeks until the inflammation from your diverticulitis infection has completely resolved. After total resolution of this diverticulitis episode, you could then consider suppositories as an additional step in your bowel regimen. Upon discharge from the hospital: * Continue following a bowel regimen to treat your constipation. Recommend MiraLAX 1 packet daily, Senokot-S 1 tablet daily, and Colace 100 mg twice daily as needed for constipation. * Drink plenty of fluids. Dehydration can cause/worsen constipation. * Follow a low fiber diet for the next few weeks, then advance to your regular diet as tolerated. * Take Protonix 40 mg daily. This medicine reduces stomach acid and will treat your gastritis. * Take Zofran 4 mg every 6 hours as needed for nausea. * Follow-up with your PCP in 1-2 weeks. Please return to the hospital if you experience any of the following: worsened/severe abdominal pain, persistent nausea with vomiting, bleeding with bowel movements, chest pain, shortness of breath, lightheadedness, passing out, confusion, or any other symptoms concerning for you. It was a pleasure taking care of you while you were in the hospital! Total Time Total Time Spent Total Time Spent (In Minutes): Greater than 30 minutes spent completing this discharge process including direct patient care, medication reconciliation, documentation, review of labs and images, and coordination of care. Coding Level of Care Code 97309 INP/OBS DISCH >30 MIN Diagnoses Diverticulitis K57.92
== END 2024-11-28 13:02 | disposition home or self-care (01) | DRG 392 ==
LOC: ED 12:27 → 3W 16:06